=== PATIENT | male | born 1950 | race Two or more races ===

== ENCOUNTER 2025-01-16 09:10 | Day surgery (SDC) | payer MEDICARE, SELFPAY ==
[2025-01-13 14:11] VITALS: BMI 27.4
[2025-01-16 09:21] VITALS: BMI 27.4
[2025-01-16 09:34] VITALS: BP 154/79; PULSE 77; RESP 18; TEMP 36.6; O2SAT 98
[2025-01-16] MEDS: RINGERS LACTATED 500 ML 500 ML 20 ML IV (11:03)
[2025-01-16 11:13] VITALS: BP 136/60; PULSE 70; RESP 18; O2SAT 99
[2025-01-16 11:40] VITALS: BP 125/65; PULSE 67; RESP 14; TEMP 37.2; O2SAT 97
[2025-01-16 11:50] VITALS: BP 139/51; PULSE 69; RESP 19; O2SAT 96
[2025-01-16 12:00] VITALS: BP 173/76; PULSE 61; RESP 18; O2SAT 97
[2025-01-16 12:10] VITALS: BP 156/70; PULSE 73; RESP 17; O2SAT 97
== END 2025-01-16 12:29 | disposition home or self-care (01) ==
PROVIDERS: Referring Provider Specialist; Visit Provider Specialist
PROC: (CPT 43239; principal; 2025-01-16 09:30)
PROC: 0DBE8ZX Excision of Large Intestine, Via Natural or Artificial Opening Endoscopic, Diagnostic (ICD-10-PCS; CPT 45380; 2025-01-16 09:30)
DX: K64.2 Third degree hemorrhoids (principal); I10 Essential (primary) hypertension; E78.5 Hyperlipidemia, unspecified; I25.10 Atherosclerotic heart disease of native coronary artery without angina pectoris; Z79.82 Long term (current) use of aspirin; Z79.02 Long term (current) use of antithrombotics/antiplatelets; Z79.899 Other long term (current) drug therapy; Z94.0 Kidney transplant status; K57.30 Diverticulosis of large intestine without perforation or abscess without bleeding
CPT/HCPCS: 45398; 80053; A4649; C1769; J7120